=== PATIENT | male | born 1950 | race Caucasian/White ===

== ENCOUNTER → 2016-10-09 | Outpatient (CLI) | payer MEDICARE ==
[2016-10-10 12:44] LABS: TESTOSTERONE FREE (DIRECT) 9.6 pg/mL (6.6-18.1)
== END ==
LOC: OD 08:55
PROVIDERS: ATTEND Urology
DX: E29.1 Testicular hypofunction (principal)
CPT/HCPCS: 36415; 84402; 84403

== ENCOUNTER → 2016-11-01 | Outpatient (CLI) | payer MEDICARE ==
[2016-11-01 13:01] LABS: ABSOLUTE EOSINOPHILS # (AUTO) 0.4 10^3/uL (0.0-0.6); ABSOLUTE LYMPHOCYTES (AUTO) 3.1 10^3/uL (0.5-4.7); ABSOLUTE MONOCYTES (AUTO) 0.9 10^3/uL (0.1-1.4); ABSOLUTE NEUT (AUTO) 6.5 10^3/uL (1.7-8.2); BASOPHILS % (AUTO) 0.3 % (0-2); EOSINOPHILS % (AUTO) 3.3 % (0-6); HEMATOCRIT 46.6 % (37.9-51.0); HEMOGLOBIN 15.9 g/dL (13.5-17.0); HGB HCT DIFFERENCE 1.1; LYMPHOCYTES % (AUTO) 28.4 % (13-45); MEAN CORPUSCULAR HEMOGLOBIN 29.2 pg (27.0-33.4); MEAN CORPUSCULAR VOLUME 86 fl (80-97); MONOCYTES % (AUTO) 8.1 % (3-13); RED BLOOD COUNT 5.44 10^6/uL (4.35-5.55); RED CELL DISTRIBUTION WIDTH 14.6 % (11.5-14.0); SEGMENTED NEUTROPHILS % (AUTO) 59.9 % (42-78); WHITE BLOOD COUNT 10.9 10^3/uL (4.0-10.5)
[2016-11-01 13:15] LABS: APPEARANCE,URINE CLEAR; BILIRUBIN,URINE NEGATIVE (NEGATIVE); GLUCOSE, URINE NEGATIVE (NEGATIVE); KETONES,URINE NEGATIVE (NEGATIVE); LEUKOCYTE ESTERASE,URINE NEGATIVE (NEGATIVE); NITRITE,URINE NEGATIVE (NEGATIVE); PROTEIN,URINE NEGATIVE (NEGATIVE); UROBILINOGEN,URINE NEGATIVE mg/dL (<2.0)
[2016-11-01 13:22] LABS: ANION GAP 13 (5-19); BLOOD UREA NITROGEN 21 mg/dL (7-20); CALCIUM 10.2 mg/dL (8.4-10.2); CARBON DIOXIDE 24 mmol/L (22-30); CHLORIDE 104 mmol/L (98-107); CREATININE RESULT 1.04 mg/dL (0.52-1.25); GLUCOSE 107 mg/dL (75-110); POTASSIUM 4.5 mmol/L (3.6-5.0); SODIUM 141.2 mmol/L (137-145)
--- NOTE | 2016-11-01 20:06 | EKG REPORT ---
SEVERITY:- NORMAL ECG - SINUS RHYTHM : Confirmed by: Bernie Correa MD 01-Nov-2016 20:06:00
== END ==
LOC: OD 11:26
PROVIDERS: ATTEND Orthopaedic Surgery
DX: Z01.810 Encounter for preprocedural cardiovascular examination (principal); Z01.812 Encounter for preprocedural laboratory examination; Z01.818 Encounter for other preprocedural examination
CPT/HCPCS: 36415; 71020; 80048; 81001; 85025; 93005; 93010

== ENCOUNTER 2016-11-20 05:31 | Inpatient (IN) | payer MEDICARE, OTHER ==
[~2016-11-20 05:31] MED LIST: BUPIVACAINE INJ/PF LIPOSOME/PF 266 MG/20 ML SDV INFIL PRN; CEFAZOLIN INJ 1 GM VIAL IV PRN; IBUPROFEN 800 MG in NORMAL SALINE 250 ML IV PRN; LACTATED RINGERS 1000 ML IV PRN; LANSOPRAZOLE 15 MG TAB.RAP.DR PO PRN; LIDOCAINE 0.5% INJ-PF (5 MG/ML) 50 ML SDV SUBCUT PRN; ONDANSETRON HCL INJ/PF 4 MG/2 ML SDV IV PRN; OXYCODONE HCL SR 10 MG TABLET PO PRN; SCOPOLAMINE HYDROBROMIDE 1.5 MG PATCH.TD72 TD PRN; TRANEXAMIC ACID INJ/PF 1,000 MG/10 ML SDV IV PRN; VANCOMYCIN HCL 1,000 MG in DEXTROSE 5%-WATER 250 ML IV PRN
[2016-11-20] MEDS ORDERED: BUPIVACAINE INJ/PF LIPOSOME/PF 266 MG/20 ML SDV ONE (06:56)
[2016-11-20] MEDS ORDERED: THROMBIN (BOVINE) 5000 UNIT EPITAXIS KIT ONE (06:56)
[2016-11-20] MEDS ORDERED: THROMBIN (BOVINE) TOPICAL 20000 UNIT VIAL ONE (06:56)
[2016-11-20] MEDS ORDERED: FENTANYL CITRATE INJ/PF 100 MCG/2 ML AMPUL ONE (07:01)
[2016-11-20] MEDS ORDERED: MIDAZOLAM 2 MG/2 ML INJ ONE (07:01)
[2016-11-20] MEDS ORDERED: EPHEDRINE SULFATE INJ 50 MG/1 ML AMPULE ONE (07:02)
[2016-11-20] MEDS ORDERED: TRANEXAMIC ACID INJ/PF 1,000 MG/10 ML SDV IV ONE ×2 (07:02→11:00)
[2016-11-20] MEDS ORDERED: DEXMEDETOMIDINE INJ 80 MCG/20 ML VIAL IV ONE (07:02)
[2016-11-20] MEDS ORDERED: PROPOFOL INJ 200 MG/20 ML VIAL IV ONE (07:02)
[2016-11-20] MEDS ORDERED: IBUPROFEN INJ 800 MG/8 ML VIAL IV ONE (07:02)
[2016-11-20] MEDS ORDERED: KETAMINE HCL INJ 500 MG/10 ML VIAL ONE (08:13)
[2016-11-20] MEDS ORDERED: FENTANYL CITRATE INJ/PF 100 MCG/2 ML AMPUL IV PRN ×3 (08:28)
[2016-11-20] MEDS ORDERED: MORPHINE SULFATE 10 MG/ML INJ IV PRN ×4 (08:28→08:57)
[2016-11-20] MEDS ORDERED: PROMETHAZINE HCL INJ 25 MG/1 ML VIAL IV PRN ×2 (08:28)
[2016-11-20] MEDS ORDERED: DIPHENHYDRAMINE HCL 50 MG/ML VIAL IV PRN ×2 (08:28→08:57)
[2016-11-20] MEDS ORDERED: MEPERIDINE HCL/PF INJ 25 MG/1 ML DISP.SYRIN IV PRN (08:28)
[2016-11-20] MEDS ORDERED: ONDANSETRON HCL INJ/PF 4 MG/2 ML SDV IV PRN ×2 (08:28→08:57)
--- NOTE | 2016-11-20 08:55 | Operative Report ---
Operative Report DATE OF SURGERY: 11/20/16 PREOPERATIVE DIAGNOSIS: Right hip arthritis OPERATION: Right hip arthroplasty SURGEON: NAHUM LUA ANESTHESIA: Spinal TISSUE REMOVED OR ALTERED: Femoral head to pathology ESTIMATED BLOOD LOSS: 200 PROCEDURE: Implants used: Femur: Striker #7 Accolade to stem Acetabular shell: 52 mm PSL shell Liner: 36 mm flat cross-link polyethylene liner Head:. 36 mm chrome cobalt head -5 neck extension The patient is placed in a left lateral decubitus position on the operating table. The right lower extremity and hindquarter is prepped and draped in a sterile fashion. A curvilinear incision was made over the greater trochanter a posterior approach the hip was taken. The femoral head is dislocated and the femoral neck transected using an oscillating saw. Attention was next turned to the acetabulum. Soft tissues cleared off the acetabulum using electrocautery. The acetabulum was then prepared using a series of hemispherical reamers until a 52 millimeters reamer is seated. Subsequently a 52 millimeters Ramya PSL shell is impacted into position and secured with 2 screw. A standard flat 36 millimeters cross-link liner is impacted into the shell. Attention was next turned to the femur. Access is gained to the femoral canal using a box osteotome to the piriformis fossa. The femur is then prepared using a series of broaches until a number 7 broach is seated. A trial reduction was now performed using a 36 millimeters head with -5 neck. Preoperative leg length was recreated and is excellent anterior posterior stability. A decision was made to proceed with the above construct. All trial implants were removed. The wound is irrigated with pulsed lavage. A number 7 stem is impacted into the femoral canal. A trial reduction was again performed with a 36 mm head and a -5 neck. Findings as previously. The hip was dislocated one last time and the final chrome-cobalt head is impacted onto the trunnion. The hip was reduced. Wound is copiously irrigated with pulsed lavage. Sent closed in layers using interrupted Vicryl followed by amanuel. A sterile dressing is applied and the patient's returned to recovery room in satisfactory patient.
[2016-11-20] MEDS ORDERED: MAG HYDROX/AL HYDROX/SIMETH SUSP 30 ML UDCUP PO PRN (08:57)
[2016-11-20] MEDS ORDERED: ONDANSETRON 4 MG TAB.RAPDIS PO PRN (08:57)
[2016-11-20] MEDS ORDERED: OXYCODONE HCL IR 5 MG TABLET PO PRN (08:57)
[2016-11-20] MEDS ORDERED: ZOLPIDEM TARTRATE 5 MG TABLET PO PRN (08:57)
[2016-11-20] MEDS ORDERED: MORPHINE SULFATE 10 MG/ML INJ IM PRN (08:57)
[2016-11-20] MEDS ORDERED: ACETAMINOPHEN 325 MG TABLET PO PRN (08:57)
[2016-11-20] MEDS ORDERED: (PENDING PHARMACY ID) (Vit C/E/Zn/Coppr/Lutein/Zeaxan [Preservision Areds 2 Softgel] 1 EAC PO SCH (10:00)
[2016-11-20] MEDS ORDERED: (PENDING PHARMACY ID) (Acetaminophen [Pain Relief] 650 MG) PO SCH (10:00)
[2016-11-20] MEDS ORDERED: OXYCODONE HCL SR 10 MG TABLET PO SCH (10:00)
[2016-11-20] MEDS ORDERED: LIDOCAINE 2% INJ-PF (20 MG/ML) 10 ML AMPUL ONE (11:14)
[2016-11-20] MEDS ORDERED: DEXAMETHASONE SOD PHOSPHATE INJ 4 MG/1 ML VIAL ONE (11:14)
[2016-11-20] MEDS ORDERED: ONDANSETRON HCL INJ/PF 4 MG/2 ML SDV ONE (11:14)
[2016-11-20] MEDS ORDERED: GLYCOPYRROLATE INJ 0.4 MG/2 ML VIAL ONE (11:14)
[2016-11-20] MEDS ORDERED: PHENYLEPHRINE HCL INJ/PF 10 MG/1 ML SDV ONE (11:14)
[2016-11-20] MEDS ORDERED: METOCLOPRAMIDE HCL INJ/PF 10 MG/2 ML SDV ONE (11:14)
[2016-11-20] MEDS: RINGERS SOLUTION,LACTATED 1,000 ML IV PRN ×2 (12:00→18:41)
[2016-11-20] MEDS: SENNOSIDES/DOCUSATE 8.6-50 MG 1 EACH TABLET PO SCH ×2 (12:01→18:08)
--- NOTE | 2016-11-20 17:56 | PDOC PROGRESS REPORT ---
Subjective Progress Note for:: 11/20/16 Subjective:: The patient states to feel much better. He denies any pain. He is status post right hip arthroplasty. His breathing is well-controlled. He has been doing incentive spirometry. Physical Exam Vital Signs: Temp Pulse Resp BP Pulse Ox 98.1 F 94 16 122/65 98 11/20/16 15:30 11/20/16 15:30 11/20/16 15:30 11/20/16 15:30 11/20/16 15:30 Intake & Output 11/19/16 11/20/16 11/21/16 06:59 06:59 06:59 Intake Total 0 3900 Output Total 2150 Balance 0 1750 General appearance: PRESENT: mild distress Head exam: PRESENT: atraumatic Eye exam: PRESENT: conjunctiva pink Neck exam: ABSENT: carotid bruit Respiratory exam: PRESENT: clear to auscultation nabil Cardiovascular exam: PRESENT: RRR, +S1, +S2 Pulses: PRESENT: +1 pedal pulses bilateral Vascular exam: PRESENT: normal capillary refill GI/Abdominal exam: PRESENT: normal bowel sounds, soft Extremities exam: PRESENT: tenderness Musculoskeletal exam: PRESENT: other Neurological exam: PRESENT: alert, awake Psychiatric exam: PRESENT: normal mood Results Laboratory Results: 11/20/16 05:58 Blood Type O POSITIVE Antibody Screen NEGATIVE Impressions: Pelvis X-Ray 11/20/16 08:58 IMPRESSION: Right hip arthroplasty in good position. Assessment & Plan - Diagnosis (1) Hip arthritis Is this a current diagnosis for this admission?: YesPlan: Continue pain management and physical therapy (2) GERD (gastroesophageal reflux disease) Is this a current diagnosis for this admission?: YesPlan: Continue PPI (3) Hypertension Is this a current diagnosis for this admission?: YesPlan: Continue current medications
[2016-11-20] MEDS: IBUPROFEN 800 MG in NORMAL SALINE 250 ML IV SCH (18:08)
[2016-11-20] MEDS: PSYLLIUM SEED-SF 5.85 GM PACKET PO SCH ×2 (18:08)
[2016-11-20] MEDS: TAMSULOSIN HCL 0.4 MG CAP.SR.24H PO SCH (18:08)
[2016-11-20] MEDS: OXYCODONE HCL SR 10 MG TABLET PO SCH (18:09)
[2016-11-20] MEDS ORDERED: VANCOMYCIN HCL 1,000 MG in DEXTROSE 5%-WATER 250 ML IV ONE (20:57)
[2016-11-20] MEDS ORDERED: CALCIUM POLYCARBOPHIL PO SCH (22:00)
[2016-11-20] MEDS: PREGABALIN 75 MG CAPSULE PO SCH (23:08)
[2016-11-20] MEDS: ATORVASTATIN CALCIUM 20 MG TABLET PO SCH (23:08)
[2016-11-20] MEDS: FINASTERIDE 5 MG TABLET PO SCH (23:09)
[2016-11-20] MEDS: RIVAROXABAN 10 MG TABLET PO SCH (23:09)
[2016-11-21] MEDS: IBUPROFEN 800 MG in NORMAL SALINE 250 ML IV SCH ×3 (02:38→18:33)
[2016-11-21 04:52] LABS: HEMATOCRIT 34.6 % (37.9-51.0); HEMOGLOBIN 11.6 g/dL (13.5-17.0); HGB HCT DIFFERENCE 0.2; MEAN CORPUSCULAR HEMOGLOBIN 29.2 pg (27.0-33.4); MEAN CORPUSCULAR HGB CONC 33.5 g/dL (32.0-36.0); MEAN CORPUSCULAR VOLUME 87 fl (80-97); RED BLOOD COUNT 3.96 10^6/uL (4.35-5.55); RED CELL DISTRIBUTION WIDTH 14.5 % (11.5-14.0); WHITE BLOOD COUNT 13.8 10^3/uL (4.0-10.5)
[2016-11-21 05:11] LABS: ANION GAP 8 (5-19); BLOOD UREA NITROGEN 15 mg/dL (7-20); CALCIUM 8.6 mg/dL (8.4-10.2); CARBON DIOXIDE 23 mmol/L (22-30); CHLORIDE 107 mmol/L (98-107); CREATININE RESULT 1.03 mg/dL (0.52-1.25); GLUCOSE 130 mg/dL (75-110); POTASSIUM 4.4 mmol/L (3.6-5.0); SODIUM 138.1 mmol/L (137-145)
[2016-11-21] MEDS: LANSOPRAZOLE 30 MG TAB.RAP.DR PO SCH (06:08)
[2016-11-21] MEDS: OXYCODONE HCL SR 10 MG TABLET PO SCH ×2 (06:08→18:33)
--- NOTE | 2016-11-21 07:02 | PDOC PROGRESS REPORT ---
Subjective Progress Note for:: 11/21/16 Subjective:: Patient with minor complaints of pain Physical Exam Vital Signs: Temp Pulse Resp BP Pulse Ox 36.8 C 68 17 98/58 L 96 11/21/16 04:00 11/21/16 04:00 11/21/16 04:00 11/21/16 04:00 11/21/16 04:00 Intake & Output 11/20/16 11/21/16 11/22/16 06:59 06:59 06:59 Intake Total 0 5750 Output Total 6750 Balance 0 -1000 General appearance: PRESENT: no acute distress Head exam: PRESENT: normocephalic Eye exam: PRESENT: EOMI Respiratory exam: PRESENT: unlabored Cardiovascular exam: PRESENT: RRR Pulses: PRESENT: +1 pedal pulses bilateral Vascular exam: PRESENT: normal capillary refill GI/Abdominal exam: PRESENT: soft Rectal exam: PRESENT: deferred Extremities exam: PRESENT: other - Right lower extremity dressing clean dry and intact. Leg lengths are equal. Distal neurovascular examinations intact. Neurological exam: PRESENT: alert, awake, oriented to person, oriented to place , oriented to time, oriented to situation, CN II-XII grossly intact. ABSENT: motor sensory deficit Psychiatric exam: PRESENT: appropriate affect, normal mood. ABSENT: homicidal ideation, suicidal ideation Skin exam: PRESENT: dry, intact, warm. ABSENT: cyanosis, rash Results Laboratory Results: 11/21/16 04:32 11/21/16 04:32 11/21/16 11/21/16 04:32 04:32 WBC 13.8 H RBC 3.96 L Hgb 11.6 L Hct 34.6 L MCV 87 MCH 29.2 MCHC 33.5 RDW 14.5 H Plt Count 155 Sodium 138.1 Potassium 4.4 Chloride 107 Carbon Dioxide 23 Anion Gap 8 BUN 15 Creatinine 1.03 Est GFR ( Amer) > 60 Est GFR (Non-Af Amer) > 60 Glucose 130 H Calcium 8.6 Impressions: Pelvis X-Ray 11/20/16 08:58 IMPRESSION: Right hip arthroplasty in good position. Status: Imported from PACS Assessment & Plan - Diagnosis (1) Arthritis of right hip Is this a current diagnosis for this admission?: YesPlan: Patient's requesting a tetanus immunization. Otherwise, he'll focus on physical therapy on a weightbearing as tolerated ambulatory mode. - Time Time Spent with patient: 15-24 minutes Anticipated discharge: Home with Homehealth Within: within 48 hours
--- NOTE | 2016-11-21 07:23 | PDOC PROGRESS REPORT ---
Subjective Progress Note for:: 11/21/16 Subjective:: The patient states to feel relatively well. He does have some sore throat after the intubation. His right hip feels much better. Physical Exam Vital Signs: Temp Pulse Resp BP Pulse Ox 98.2 F 68 17 98/58 L 96 11/21/16 04:00 11/21/16 04:00 11/21/16 04:00 11/21/16 04:00 11/21/16 04:00 Intake & Output 11/20/16 11/21/16 11/22/16 06:59 06:59 06:59 Intake Total 0 5750 Output Total 6750 Balance 0 -1000 General appearance: PRESENT: mild distress Head exam: PRESENT: atraumatic Eye exam: PRESENT: conjunctiva pink Neck exam: ABSENT: carotid bruit Respiratory exam: PRESENT: rhonchi Cardiovascular exam: PRESENT: RRR, +S1, +S2 Pulses: PRESENT: normal carotid pulses, +1 pedal pulses bilateral GI/Abdominal exam: PRESENT: normal bowel sounds, soft Extremities exam: PRESENT: tenderness Neurological exam: PRESENT: alert, awake Results Laboratory Results: 11/21/16 04:32 11/21/16 04:32 11/21/16 11/21/16 04:32 04:32 WBC 13.8 H RBC 3.96 L Hgb 11.6 L Hct 34.6 L MCV 87 MCH 29.2 MCHC 33.5 RDW 14.5 H Plt Count 155 Sodium 138.1 Potassium 4.4 Chloride 107 Carbon Dioxide 23 Anion Gap 8 BUN 15 Creatinine 1.03 Est GFR ( Amer) > 60 Est GFR (Non-Af Amer) > 60 Glucose 130 H Calcium 8.6 Impressions: Pelvis X-Ray 11/20/16 08:58 IMPRESSION: Right hip arthroplasty in good position. Assessment & Plan - Diagnosis (1) Hip arthritis Is this a current diagnosis for this admission?: YesPlan: Continue pain management and physical therapy (2) GERD (gastroesophageal reflux disease) Is this a current diagnosis for this admission?: Yes (3) Hypertension Is this a current diagnosis for this admission?: YesPlan: Continue current medications (4) COPD (chronic obstructive pulmonary disease) Is this a current diagnosis for this admission?: YesPlan: Continue with incentive spirometry and neb treatments
[2016-11-21] MEDS ORDERED: TETANUS/DIPHTHERIA TOX-ADULT 0.5 ML SYR (>=7YO) IM ONE ×2 (09:30→15:30)
[2016-11-21] MEDS: SENNOSIDES/DOCUSATE 8.6-50 MG 1 EACH TABLET PO SCH ×2 (09:46→18:33)
[2016-11-21] MEDS: ACETAMINOPHEN 325 MG TABLET PO SCH (09:46)
[2016-11-21] MEDS: PREGABALIN 75 MG CAPSULE PO SCH ×2 (09:46→21:50)
[2016-11-21] MEDS: PRENATAL VITAMIN W-O CA NO5/FE FUMARATE/FA CAPSULE PO SCH (09:46)
[2016-11-21] MEDS: TAMSULOSIN HCL 0.4 MG CAP.SR.24H PO SCH (18:33)
[2016-11-21] MEDS: PSYLLIUM SEED-SF 5.85 GM PACKET PO SCH ×2 (18:34)
[2016-11-21] MEDS: RIVAROXABAN 10 MG TABLET PO SCH (21:50)
[2016-11-21] MEDS: FINASTERIDE 5 MG TABLET PO SCH (21:50)
[2016-11-21] MEDS: ATORVASTATIN CALCIUM 20 MG TABLET PO SCH (21:51)
[2016-11-22] MEDS: IBUPROFEN 800 MG in NORMAL SALINE 250 ML IV SCH ×2 (03:29→10:05)
[2016-11-22] MEDS: OXYCODONE HCL SR 10 MG TABLET PO SCH (05:02)
[2016-11-22] MEDS: LANSOPRAZOLE 30 MG TAB.RAP.DR PO SCH (05:03)
[2016-11-22 06:06] LABS: HEMATOCRIT 33.5 % (37.9-51.0); HEMOGLOBIN 11.3 g/dL (13.5-17.0); HGB HCT DIFFERENCE 0.4; MEAN CORPUSCULAR HGB CONC 33.7 g/dL (32.0-36.0); MEAN CORPUSCULAR VOLUME 86 fl (80-97); RED BLOOD COUNT 3.89 10^6/uL (4.35-5.55); RED CELL DISTRIBUTION WIDTH 14.6 % (11.5-14.0); WHITE BLOOD COUNT 12.2 10^3/uL (4.0-10.5)
--- NOTE | 2016-11-22 07:16 | PDOC PROGRESS REPORT ---
Physical Exam Vital Signs: Temp Pulse Resp BP Pulse Ox 36.7 C 78 16 108/67 97 11/21/16 23:12 11/21/16 23:12 11/21/16 23:12 11/21/16 23:12 11/21/16 23:12 Intake & Output 11/21/16 11/22/16 11/23/16 06:59 06:59 06:59 Intake Total 5750 1120 Output Total 6750 1300 Balance -1000 -180 Results Laboratory Results: 11/22/16 04:58 11/21/16 04:32 11/22/16 04:58 WBC 12.2 H RBC 3.89 L Hgb 11.3 L Hct 33.5 L MCV 86 MCH 29.0 MCHC 33.7 RDW 14.6 H Plt Count 161 Impressions: Pelvis X-Ray 11/20/16 08:58 IMPRESSION: Right hip arthroplasty in good position. Assessment & Plan - Diagnosis (1) Arthritis of right hip Is this a current diagnosis for this admission?: YesPlan: 66-year-old white male, postop day 2 from right hip arthroplasty. Patient complaining of pain. Mid excellent progress with physical therapy yesterday. Ambulating 200 feet. Is requesting additional day in the hospital for better pain control. - Time Time Spent with patient: 15-24 minutes Anticipated discharge: Home with Homehealth Within: within 24 hours
[2016-11-22] MEDS: ACETAMINOPHEN 325 MG TABLET PO SCH (10:05)
[2016-11-22] MEDS: PRENATAL VITAMIN W-O CA NO5/FE FUMARATE/FA CAPSULE PO SCH (10:05)
[2016-11-22] MEDS: SENNOSIDES/DOCUSATE 8.6-50 MG 1 EACH TABLET PO SCH ×2 (10:06→17:57)
[2016-11-22] MEDS: PREGABALIN 75 MG CAPSULE PO SCH ×2 (10:06→23:22)
--- NOTE | 2016-11-22 11:06 | PDOC PROGRESS REPORT ---
Subjective Progress Note for:: 11/22/16 Subjective:: The patient states to feel better. He is still very unsteady on his feet. He thinks it might have to do with his disequilibrium after the brain tumor removal. He was able to ambulate with assistance and walker down the hallways. Physical Exam Vital Signs: Temp Pulse Resp BP Pulse Ox 98.0 F 77 18 115/63 98 11/22/16 08:38 11/22/16 08:38 11/22/16 08:38 11/22/16 08:38 11/22/16 08:38 Intake & Output 11/21/16 11/22/16 11/23/16 06:59 06:59 06:59 Intake Total 5750 1120 0 Output Total 6750 1300 Balance -1000 -180 0 General appearance: PRESENT: no acute distress Head exam: PRESENT: atraumatic Eye exam: PRESENT: conjunctiva pink Neck exam: ABSENT: carotid bruit Respiratory exam: PRESENT: rhonchi Cardiovascular exam: PRESENT: RRR, +S1, +S2 Pulses: PRESENT: normal carotid pulses Vascular exam: PRESENT: normal capillary refill GI/Abdominal exam: PRESENT: normal bowel sounds, soft Extremities exam: PRESENT: tenderness Musculoskeletal exam: PRESENT: ambulatory Neurological exam: PRESENT: alert, awake Results Laboratory Results: 11/22/16 04:58 11/21/16 04:32 11/22/16 04:58 WBC 12.2 H RBC 3.89 L Hgb 11.3 L Hct 33.5 L MCV 86 MCH 29.0 MCHC 33.7 RDW 14.6 H Plt Count 161 Impressions: Pelvis X-Ray 11/20/16 08:58 IMPRESSION: Right hip arthroplasty in good position. Assessment & Plan - Diagnosis (1) Hip arthritis Is this a current diagnosis for this admission?: YesPlan: Continue pain management and physical therapy (2) GERD (gastroesophageal reflux disease) Is this a current diagnosis for this admission?: Yes (3) Hypertension Is this a current diagnosis for this admission?: YesPlan: Continue current medications (4) COPD (chronic obstructive pulmonary disease) Is this a current diagnosis for this admission?: YesPlan: Continue with incentive spirometry and neb treatments
[2016-11-22] MEDS: TAMSULOSIN HCL 0.4 MG CAP.SR.24H PO SCH (17:57)
[2016-11-22] MEDS: PSYLLIUM SEED-SF 5.85 GM PACKET PO SCH ×2 (17:57)
[2016-11-22] MEDS: ATORVASTATIN CALCIUM 20 MG TABLET PO SCH (23:21)
[2016-11-22] MEDS: FINASTERIDE 5 MG TABLET PO SCH (23:22)
[2016-11-22] MEDS: RIVAROXABAN 10 MG TABLET PO SCH (23:24)
[2016-11-23] MEDS: LANSOPRAZOLE 30 MG TAB.RAP.DR PO SCH (05:17)
[2016-11-23 05:30] LABS: HEMATOCRIT 35.5 % (37.9-51.0); HEMOGLOBIN 11.9 g/dL (13.5-17.0); HGB HCT DIFFERENCE 0.2; MEAN CORPUSCULAR HEMOGLOBIN 28.9 pg (27.0-33.4); MEAN CORPUSCULAR HGB CONC 33.5 g/dL (32.0-36.0); MEAN CORPUSCULAR VOLUME 86 fl (80-97); RED BLOOD COUNT 4.11 10^6/uL (4.35-5.55); RED CELL DISTRIBUTION WIDTH 14.9 % (11.5-14.0); WHITE BLOOD COUNT 13.9 10^3/uL (4.0-10.5)
--- NOTE | 2016-11-23 06:49 | PDOC DISCHARGE SUMMARY ---
General - Admit/Disc Date/PCP Admission Date/Primary Care Provider: 11/20/16 05:31 CHRISTOS HIGGINBOTHAM, Discharge Date: 11/23/16 - Discharge Diagnosis (1) Arthritis of right hip Is this a current diagnosis for this admission?: Yes - Additional Information Resuscitation Status: Full Code Discharge Diet: As Tolerated, Regular Discharge Activity: Activity As Tolerated, Balance Activity w/Rest, No Driving, No tub bath Home Medications: Omeprazole 20 mg PO BID 03/07/14 Pravastatin Sodium [Pravachol] 80 mg PO QHS 03/07/14 Tamsulosin HCl [Flomax 0.4 mg Cap.sr] 0.4 mg PO QPM 03/07/14 Aspirin 81 mg PO DAILY 02/24/15 Finasteride [Proscar 5 mg Tablet] 5 mg PO QHS 02/24/15 Multivitamin [Multivitamins] 1 each PO DAILY 02/24/15 [place]-3 Fatty Acids/Fish Oil [Fish Oil 1,000 mg Capsule] 1,000 mg PO DAILY 02/24 Calcium Polycarbophil [Fiber Tabs 625 mg Tablet] 3 tab PO QHS 08/24/15 Calcium Polycarbophil [Fiber-Tabs] 2 tab PO QAM 08/24/15 Vit C/E/Zn/Coppr/Lutein/Zeaxan [Preservision Areds 2 Softgel] 1 each PO BID 03/31 Acetaminophen [Pain Relief] 650 mg PO DAILY 11/08/16 Calcium Carbonate [Tums Ultra] 2 - 3 tab.chew PO QPM PRN 11/08/16 Cholecalciferol (Vitamin D3) [Vitamin D3] 1,000 unit PO DAILY 11/08/16 Oxycodone HCl [Oxy-Ir 5 mg Tablet] 5 mg PO Q6HP PRN #0 tablet 11/23/16 Rivaroxaban [Xarelto 10 mg Tablet] 10 mg PO QHS #0 tablet 11/23/16 History of Present Illness History of Present Illness: JADA SPARKS is a 66 year old male progressive right hip pain and functional disability secondary to osteoarthritis Hospital Course Hospital Course: A she is admitted through the operating room where he undergoes uncomplicated right hip replacement. His returned to floor in satisfactory condition. He makes excellent progress with physical therapy. Previous brain tumor leading to some instability and he kept an extra day for ongoing physical therapy. Physical Exam Vital Signs: Temp Pulse Resp BP Pulse Ox 37.1 C 98 17 127/65 H 94 11/23/16 03:38 11/23/16 03:38 11/23/16 03:38 11/23/16 03:38 11/23/16 03:38 Intake & Output 11/21/16 11/22/16 11/23/16 06:59 06:59 06:59 Intake Total 5750 1120 800 Output Total 6750 1300 1500 Balance -1000 -180 -700 General appearance: PRESENT: no acute distress Head exam: PRESENT: normocephalic Respiratory exam: PRESENT: unlabored Cardiovascular exam: PRESENT: RRR Pulses: PRESENT: +1 pedal pulses bilateral GI/Abdominal exam: PRESENT: soft Rectal exam: PRESENT: deferred Musculoskeletal exam: PRESENT: other - Right lower extremity anastasiya dressing is clean dry and intact. Leg lengths are equal. Distal neurovascular examinations intact. Skin exam: PRESENT: dry, intact, warm. ABSENT: cyanosis, rash Results Laboratory Results: 11/23/16 05:15 11/21/16 04:32 11/23/16 05:15 WBC 13.9 H RBC 4.11 L Hgb 11.9 L Hct 35.5 L MCV 86 MCH 28.9 MCHC 33.5 RDW 14.9 H Plt Count 171 Impressions: Pelvis X-Ray 11/20/16 08:58 IMPRESSION: Right hip arthroplasty in good position. Status: Imported from PACS Plan Discharge Plan: The patient will be discharged home with home health nursing, home health physical therapy, we'll Walker, bedside commode. Visiting nurse service can change the anastasiya dressing was stopped a #7 and replace it with an OpSite. Patient return to see Dr. Ramos in the [facility] for surgeon 2 weeks for staple removal.
[2016-11-23 08:28] VITALS: BP 134/82
[2016-11-23] MEDS: PRENATAL VITAMIN W-O CA NO5/FE FUMARATE/FA CAPSULE PO SCH (09:16)
[2016-11-23] MEDS: ACETAMINOPHEN 325 MG TABLET PO SCH (09:17)
[2016-11-23] MEDS: PREGABALIN 75 MG CAPSULE PO SCH (09:17)
[2016-11-23] MEDS: SENNOSIDES/DOCUSATE 8.6-50 MG 1 EACH TABLET PO SCH (09:17)
== END 2016-11-23 11:45 | disposition home health service (06) | DRG 470 ==
LOC: INOR 05:31 → 4S 10:36
PROVIDERS: ADMIT Orthopaedic Surgery; ATTEND Orthopaedic Surgery
PROC: 0SR902A Replacement of Right Hip Joint with Metal on Polyethylene Synthetic Substitute, Uncemented, Open Approach (ICD-10-PCS; principal; 2016-11-20 07:30)
PROC: 3E0234Z Introduction of Serum, Toxoid and Vaccine into Muscle, Percutaneous Approach (ICD-10-PCS; 2016-11-21)
DX: M16.11 Unilateral primary osteoarthritis, right hip (principal); H40.9 Unspecified glaucoma; H91.90 Unspecified hearing loss, unspecified ear; K21.9 Gastro-esophageal reflux disease without esophagitis; I10 Essential (primary) hypertension; J44.9 Chronic obstructive pulmonary disease, unspecified; N40.0 Benign prostatic hyperplasia without lower urinary tract symptoms; Z23 Encounter for immunization; Z87.891 Personal history of nicotine dependence
CPT/HCPCS: 01214; 36415; 72170; 80048; 85027; 86850; 86900; 86901; 88304; 88311; 90714; 94799; C1713; C1780; C9290; G8978-GP; G8979-GP; G8987-GO; G8988-GO; J0690; J1100; J1741; J2250; J2370; J2405; J2704; J2765; J3010; J3370; J3490; J7050; J7060; J7120; S0119

== ENCOUNTER 2016-11-24 23:50 | Emergency (ER) | payer MEDICARE, OTHER ==
[2016-11-25] MEDS ORDERED: ACETAMINOPHEN 325 MG TABLET ONE (01:02)
[2016-11-25 02:10] LABS: ABSOLUTE EOSINOPHILS # (AUTO) 0.3 10^3/uL (0.0-0.6); ABSOLUTE MONOCYTES (AUTO) 1.5 10^3/uL (0.1-1.4); ABSOLUTE NEUT (AUTO) 10.9 10^3/uL (1.7-8.2); ALANINE AMINOTRANSFERASE 52 U/L (21-72); ALBUMIN 3.4 g/dL (3.5-5.0); ALKALINE PHOSPHATASE 47 U/L (38-126); ANION GAP 13 (5-19); ASPARTATE AMINO TRANSFERASE 47 U/L (17-59); BASOPHILS % (AUTO) 0.2 % (0-2); BILIRUBIN,DIRECT 0.3 mg/dL (0.0-0.4); BILIRUBIN,TOTAL 0.7 mg/dL (0.2-1.3); BLOOD UREA NITROGEN 19 mg/dL (7-20); CARBON DIOXIDE 23 mmol/L (22-30); CHLORIDE 102 mmol/L (98-107); CREATINE KINASE MB 2.12 ng/mL (<4.55); CREATININE RESULT 1.07 mg/dL (0.52-1.25); EOSINOPHILS % (AUTO) 2.3 % (0-6); GLUCOSE 132 mg/dL (75-110); HEMATOCRIT 37.9 % (37.9-51.0); HEMOGLOBIN 12.4 g/dL (13.5-17.0); HGB HCT DIFFERENCE -0.7; LYMPHOCYTES % (AUTO) 13.7 % (13-45); MEAN CORPUSCULAR HEMOGLOBIN 28.3 pg (27.0-33.4); MEAN CORPUSCULAR HGB CONC 32.7 g/dL (32.0-36.0); MEAN CORPUSCULAR VOLUME 86 fl (80-97); MONOCYTES % (AUTO) 10.4 % (3-13); POTASSIUM 4.3 mmol/L (3.6-5.0); RED BLOOD COUNT 4.39 10^6/uL (4.35-5.55); RED CELL DISTRIBUTION WIDTH 14.1 % (11.5-14.0); SEGMENTED NEUTROPHILS % (AUTO) 73.4 % (42-78); SODIUM 137.8 mmol/L (137-145); TOTAL PROTEIN 6.2 g/dL (6.3-8.2); WHITE BLOOD COUNT 14.8 10^3/uL (4.0-10.5)
[2016-11-25 02:11] LABS: TROPONIN I < 0.012 ng/mL
[2016-11-25 02:20] LABS: CREATINE KINASE 746 U/L (55-170)
[2016-11-25] MEDS ORDERED: ACETAMINOPHEN 325 MG TABLET PO ONE (03:30)
[2016-11-25] MEDS ORDERED: LEVOFLOXACIN 750 MG TABLET PO ONE (05:58)
--- NOTE | 2016-11-25 06:22 | ER Document Report ---
ED General - General Chief Complaint: Chest Wall Pain Stated Complaint: CHEST PAIN Time Seen by Provider: 11/25/16 00:17 Mode of Arrival: Medic Information source: Patient, Relative TRAVEL OUTSIDE OF THE [place] IN LAST 30 DAYS: No - HPI Notes: 66-year-old white male status post right total hip replacement for arthritis on 11/20/16 presents with report he has had chronic swelling and pain to the right hip region which is gradually improving, but 4 hours prior to arrival he developed chest pain that was pleuritic followed by chills and rigors and a slightly worsening cough. He denies any abdominal pain or radiation of pain about the arms. No nausea or vomiting. He does admit to feeling somewhat short of breath. No prior history of cardiac disease. - Related Data Allergies/Adverse Reactions: lactose [Lactose] Allergy (Mild, Verified 11/08/16 11:56) Nausea, Stomach Cramps, Diarrhea Past Medical History - General Information source: Patient - Social History Smoking Status: Never Smoker Frequency of alcohol use: None Drug Abuse: None Lives with: Family Family History: Malignancy. denies: CAD - Past Medical History Cardiac Medical History: Reports: Hx Hypercholesterolemia, Hx Hypertension - well controlled Denies: Hx Atrial Fibrillation, Hx Congestive Heart Failure, Hx Coronary Artery Disease, Hx Heart Attack, Hx Peripheral Vascular Disease, Hx Pulmonary Embolism, Hx Heart Murmur Pulmonary Medical History: Reports: Hx Bronchitis, Hx COPD Denies: Hx Asthma, Hx Pneumonia, Hx Respiratory Failure, Hx Sleep Apnea, Hx Tuberculosis Neurological Medical History: Denies: Hx Cerebrovascular Accident, Hx Seizures Renal/ Medical History: Reports: Hx Benign Prostatic Hyperplasia - nocturia x 2-3/night. Denies: Hx End Stage Renal Disease, Hx Kidney Stones, Hx Peritoneal Dialysis Malignancy Medical History: Denies Hx Lung Cancer GI Medical History: Reports: Hx Gastroesophageal Reflux Disease, Hx Hiatal Hernia, Hx Ulcer. Denies: Hx Crohn's Disease, Hx Hepatitis, Hx Irritable Bowel , Hx Liver Failure Musculoskeltal Medical History: Reports Hx Arthritis - hip, Denies Hx Fibromyalgia, Denies Hx Multiple Sclerosis, Denies Hx Muscular Dystrophy Psychiatric Medical History: Denies: Hx Dementia, Hx Depression Traumatic Medical History: Reports: Hx Fractures - multiple "toes and fingers", denies surgical intervention Infectious Medical History: Denies: Hx Hepatitis Past Surgical History: Reports: Hx Herniorrhaphy - 2016, Hx Neurologic Surgery, Hx Orthopedic Surgery - Right and left hip, Hx Tonsillectomy - as child. Denies : Hx Appendectomy, Hx Bowel Surgery, Hx Cholecystectomy, Hx Colostomy, Hx Coronary Artery Bypass Graft, Hx Gastric Bypass Surgery, Hx Open Heart Surgery, Hx Pacemaker - Immunizations Immunizations up to date: Yes Hx Diphtheria, Pertussis, Tetanus Vaccination: Yes Hx Pneumococcal Vaccination: 07/16/11 Review of Systems - Review of Systems Notes: REVIEW OF SYSTEMS: CONSTITUTIONAL : Reports chills. EENT: Denies eye, ear, throat, or mouth pain or symptoms. Denies nasal or sinus congestion or discharge. Denies throat, tongue, or mouth swelling or difficulty swallowing. CARDIOVASCULAR: Denies palpitations or racing or irregular heart beat. RESPIRATORY: Denies wheezing. GASTROINTESTINAL: Denies abdominal pain or distention. Denies nausea, vomiting , or diarrhea. Denies blood in vomitus, stools, or per rectum. Denies black, tarry stools. Denies constipation. GENITOURINARY: Denies difficulty urinating, painful urination, burning, frequency, blood in urine, or discharge. MUSCULOSKELETAL: Denies back or neck pain or stiffness. Denies joint pain or swelling. SKIN: Denies rash, lesions or sores. HEMATOLOGIC : Denies easy bruising or bleeding. LYMPHATIC: Denies swollen, enlarged glands. NEUROLOGICAL: Denies confusion or altered mental status. Denies passing out or loss of consciousness. Denies dizziness or lightheadedness. Denies headache. Denies weakness or paralysis or loss of use of either side. Denies problems with gait or speech. Denies sensory loss, numbness, or tingling. Denies seizures. PSYCHIATRIC: Denies anxiety or stress. Denies depression, suicidal ideation, or homicidal ideation. ALL OTHER SYSTEMS REVIEWED AND NEGATIVE. Dictation was performed using [employer] voice recognition software Physical Exam - Vital signs Vitals: Pulse Ox 94 11/24/16 23:54 - Notes Notes: PHYSICAL EXAMINATION: GENERAL: Well-appearing, well-nourished and in no acute distress. HEAD: Atraumatic, normocephalic. EYES: Pupils equal round and reactive to light, extraocular movements intact, sclera anicteric, conjunctiva are normal. ENT: Nares patent, oropharynx clear without exudates. Moist mucous membranes. NECK: Normal range of motion, supple without lymphadenopathy LUNGS: Breath sounds clear to auscultation bilaterally and equal. No wheezes. Scant rhonchi noted anteriorly. HEART: Regular rate and rhythm without murmurs ABDOMEN: Soft, nontender, nondistended abdomen. No guarding, no rebound. No masses appreciated. Musculoskeletal: Normal range of motion. No cyanosis. Tender to the anterior chest on palpation through the costal margin and mid sternal region, worse with coughing. Negative Homans. No obvious palpable cord. Patient does have 2+ edema right lower extremity as compared to trace edema left lower extremity. NEUROLOGICAL: Cranial nerves grossly intact. Normal speech, normal gait. Normal sensory, motor exams PSYCH: Normal mood, normal affect. SKIN: Warm, Dry, normal turgor. Right hip post surgical site shows resolving contusion and no gross evidence for deep S's or cellulitis. Course - Re-evaluation Re-evalutation: 11/25/16 07:19 11/25/16 07:20 The patient was given Tylenol for pain with improvement. Off of oxygen, the patient's O2 sats were in the mid 90s. No hypoxia or suggestion for PE or significant anemia or electrolyte imbalance or evidence for sepsis. Blood cultures taken prior to the patient receiving Levaquin. No history of exposure to tuberculosis. No evidence for obvious cellulitis or abscess. - Vital Signs Vital signs: Temp Pulse Resp BP Pulse Ox 98.3 F 90 19 115/60 94 11/25/16 06:01 11/25/16 00:15 11/25/16 06:01 11/25/16 06:01 11/25/16 06:01 - Laboratory Result Diagrams: 11/25/16 00:17 11/25/16 00:17 Laboratory results interpreted by me: 11/25/16 11/25/16 00:17 00:17 WBC 14.8 H Hgb 12.4 L RDW 14.1 H Absolute Neutrophils 10.9 H Absolute Monocytes 1.5 H Glucose 132 H Creatine Kinase 746 H Total Protein 6.2 L Albumin 3.4 L Discharge - Discharge Clinical Impression: Chest pain Qualifiers: Chest pain type: pleurodynia Qualified Code(s): R07.81 - Pleurodynia Pneumonia Qualifiers: Pneumonia type: due to unspecified organism Laterality: bilateral Lung location : upper lobe of lung Qualified Code(s): J18.9 - Pneumonia, unspecified organism Condition: Stable Disposition: HOME, SELF-CARE Additional Instructions: Pneumonia Your examination indicates that you have pneumonia. This is an infection of the lung tissue, usually caused by bacteria or a virus. Symptoms include cough, fever, shaking chills, chest pain, shortness of breath, and coughing up bloody sputum. Treatment for bacterial pneumonia includes rest, antibiotics for 10 to 14 days, increasing your clear liquid intake, a cool mist humidifier at your bedside, and fever medication. Often, a repeat chest X-ray is performed in a few weeks--even if you feel better--to ascertain whether the infection has completely resolved and no underlying lung problem is present. You should call the physician if you develop persistent vomiting, high fever that does not respond to fever medication, increasing shortness of breath , confusion, or lethargy. Also, failure to improve within two to three days is an indication for re-examination. Take Tylenol as directed for any fever. Return to the ED in case of severe pain or difficulty breathing. Prescriptions: Levofloxacin [Levaquin 500 mg Tablet] 500 mg PO DAILY #8 tablet Referrals: CHRISTOS HIGGINBOTHAM MD [Primary Care Provider] - Follow up as needed
[2016-11-25 06:36] VITALS: BP 115/60
--- NOTE | 2016-11-25 13:14 | EKG REPORT ---
SEVERITY:- NORMAL ECG - SINUS RHYTHM : Confirmed by: Maribell Faulkner 25-Nov-2016 13:13:15
== END 2016-11-25 07:40 | disposition home or self-care (01) ==
LOC: ER 23:50
DX: J18.9 Pneumonia, unspecified organism (principal); R07.81 Pleurodynia; R68.83 Chills (without fever); J44.9 Chronic obstructive pulmonary disease, unspecified; R05 Cough; R06.02 Shortness of breath; R60.0 Localized edema; I10 Essential (primary) hypertension; Z91.018 Allergy to other foods; Z96.641 Presence of right artificial hip joint
CPT/HCPCS: 93005; 99285; 36415; 87040; 82553; 82550; 85025; 80053; 84484; 83605; 71010; 71275; 93010; A9270 ×2

== ENCOUNTER 2017-05-11 17:44 | Emergency (ER) | payer MEDICARE, OTHER ==
[2017-05-11] MEDS ORDERED: NORMAL SALINE 1000 ML 1,000 ML IV ONE (18:23)
[2017-05-11] MEDS ORDERED: KETOROLAC TROMETHAMINE INJ/PF 30 MG/1 ML SDV IV ONE (18:24)
--- NOTE | 2017-05-11 18:29 | ER Document Report ---
ED Medical Screen (RME) - General Chief Complaint: Abdominal Pain Stated Complaint: RIGHT SIDE PAIN Time Seen by Provider: 05/11/17 18:23 Mode of Arrival: Wheelchair Information source: Patient TRAVEL OUTSIDE OF THE [place] IN LAST 30 DAYS: No - HPI Patient complains to provider of: R sided abd pain Onset: Just prior to arrival - pt states he sneezed earlier this afternoon and then developed R-sided abd pain. Denies N/V/SOB. States he is having some dyspnea when he takes a deep breath. - Related Data Allergies/Adverse Reactions: lactose [Lactose] Allergy (Mild, Verified 11/08/16 11:56) Nausea, Stomach Cramps, Diarrhea Past Medical History - Past Medical History Cardiac Medical History: Reports: Hx Hypercholesterolemia, Hx Hypertension - well controlled Denies: Hx Atrial Fibrillation, Hx Congestive Heart Failure, Hx Coronary Artery Disease, Hx Heart Attack, Hx Peripheral Vascular Disease, Hx Pulmonary Embolism, Hx Heart Murmur Pulmonary Medical History: Reports: Hx Bronchitis, Hx COPD Denies: Hx Asthma, Hx Pneumonia, Hx Respiratory Failure, Hx Sleep Apnea, Hx Tuberculosis Neurological Medical History: Denies: Hx Cerebrovascular Accident, Hx Seizures Renal/ Medical History: Reports: Hx Benign Prostatic Hyperplasia - nocturia x 2-3/night. Denies: Hx End Stage Renal Disease, Hx Kidney Stones, Hx Peritoneal Dialysis Malignancy Medical History: Denies Hx Lung Cancer GI Medical History: Reports: Hx Gastroesophageal Reflux Disease, Hx Hiatal Hernia, Hx Ulcer. Denies: Hx Crohn's Disease, Hx Hepatitis, Hx Irritable Bowel , Hx Liver Failure, Hx Pancreatitis Musculoskeltal Medical History: Reports Hx Arthritis - hip, Denies Hx Fibromyalgia, Denies Hx Multiple Sclerosis, Denies Hx Muscular Dystrophy Psychiatric Medical History: Denies: Hx Dementia, Hx Depression Traumatic Medical History: Reports: Hx Fractures - multiple "toes and fingers", denies surgical intervention Infectious Medical History: Denies: Hx Hepatitis Past Surgical History: Reports: Hx Herniorrhaphy - 2016, Hx Neurologic Surgery, Hx Orthopedic Surgery - Right and left hip, Hx Tonsillectomy - as child. Denies : Hx Appendectomy, Hx Bowel Surgery, Hx Cholecystectomy, Hx Colostomy, Hx Coronary Artery Bypass Graft, Hx Gastric Bypass Surgery, Hx Open Heart Surgery, Hx Pacemaker - Immunizations Immunizations up to date: Yes Hx Diphtheria, Pertussis, Tetanus Vaccination: Yes Physical Exam - Vital signs Vitals: Temp Pulse Resp BP Pulse Ox 97.6 F 80 24 H 134/80 H 97 05/11/17 17:51 05/11/17 17:51 05/11/17 17:51 05/11/17 17:51 05/11/17 17:51 Course - Vital Signs Vital signs: Temp Pulse Resp BP Pulse Ox 97.6 F 80 24 H 134/80 H 97 05/11/17 17:51 05/11/17 17:51 05/11/17 17:51 05/11/17 17:51 05/11/17 17:51
--- NOTE | 2017-05-11 18:56 | RADIOLOGY REPORT (SQ) ---
EXAM DESCRIPTION: CHEST PA/LAT COMPLETED DATE/TIME: 05/11/2017 6:48 pm REASON FOR STUDY: sob COMPARISON: 02/18/2015 EXAM PARAMETERS: NUMBER OF VIEWS: two views TECHNIQUE: Digital Frontal and Lateral radiographic views of the chest acquired. RADIATION DOSE: NA LIMITATIONS: none FINDINGS: LUNGS AND PLEURA: Stable chronic lung change without new opacities, masses or pneumothorax . No pleural effusion. MEDIASTINUM AND HILAR STRUCTURES: No masses or contour abnormalities. HEART AND VASCULAR STRUCTURES: Heart stable size. No evidence for failure. BONES: No acute findings. HARDWARE: None in the chest. OTHER: No other significant finding. IMPRESSION: NO ACUTE CARDIOPULMONARY PROCESS. NO SIGNIFICANT CHANGE FROM PRIOR STUDY. TECHNICAL DOCUMENTATION: JOB ID: [id number] [employer]- All Rights Reserved
[2017-05-11 19:20] LABS: ABSOLUTE EOSINOPHILS # (AUTO) 0.5 10^3/uL (0.0-0.6); ABSOLUTE LYMPHOCYTES (AUTO) 3.6 10^3/uL (0.5-4.7); ABSOLUTE MONOCYTES (AUTO) 1.1 10^3/uL (0.1-1.4); ABSOLUTE NEUT (AUTO) 5.4 10^3/uL (1.7-8.2); BASOPHILS % (AUTO) 0.3 % (0-2); EOSINOPHILS % (AUTO) 4.3 % (0-6); HEMATOCRIT 47.2 % (37.9-51.0); HEMOGLOBIN 15.8 g/dL (13.5-17.0); HGB HCT DIFFERENCE 0.2; MEAN CORPUSCULAR HEMOGLOBIN 28.3 pg (27.0-33.4); MEAN CORPUSCULAR HGB CONC 33.6 g/dL (32.0-36.0); MEAN CORPUSCULAR VOLUME 84 fl (80-97); MONOCYTES % (AUTO) 10.2 % (3-13); RED CELL DISTRIBUTION WIDTH 15.1 % (11.5-14.0); SEGMENTED NEUTROPHILS % (AUTO) 51.2 % (42-78); WHITE BLOOD COUNT 10.5 10^3/uL (4.0-10.5)
[2017-05-11 19:39] LABS: ALANINE AMINOTRANSFERASE 59 U/L (21-72); ALBUMIN 4.5 g/dL (3.5-5.0); ALKALINE PHOSPHATASE 64 U/L (38-126); ANION GAP 13 (5-19); ASPARTATE AMINO TRANSFERASE 32 U/L (17-59); BILIRUBIN,DIRECT 0.3 mg/dL (0.0-0.4); BILIRUBIN,TOTAL 0.6 mg/dL (0.2-1.3); BLOOD UREA NITROGEN 22 mg/dL (7-20); CALCIUM 9.2 mg/dL (8.4-10.2); CARBON DIOXIDE 24 mmol/L (22-30); CHLORIDE 104 mmol/L (98-107); CREATININE RESULT 1.12 mg/dL (0.52-1.25); GLUCOSE 90 mg/dL (75-110); LIPASE 156.2 U/L (23-300); POTASSIUM 4.7 mmol/L (3.6-5.0); SODIUM 140.5 mmol/L (137-145); TOTAL PROTEIN 7.5 g/dL (6.3-8.2)
--- NOTE | 2017-05-11 21:03 | RADIOLOGY REPORT (SQ) ---
EXAM DESCRIPTION: CT ABD/PELVIS WITH IV ONLY COMPLETED DATE/TIME: 05/11/2017 8:51 pm REASON FOR STUDY: R abdomen pain COMPARISON: 04/19/2016 TECHNIQUE: CT scan of the abdomen and pelvis performed using helical scanning technique with dynamic intravenous contrast injection. No oral contrast. Images reviewed with lung, soft tissue, and bone windows. Reconstructed coronal and sagittal MPR images reviewed. Delayed images for evaluation of the urinary system also acquired. All images stored on PACS. All CT scanners at this facility use dose modulation, iterative reconstruction, and/or weight based d osing when appropriate to reduce radiation dose to as low as reasonably achievable (ALARA). [facility]: Dose Right [facility]: CareDose [facility]: Dose Right [facility]: Teradose 4D [facility]: LiveHive CONTRAST TYPE AND DOSE: contrast/concentration: Isovue 370.00 mg/ml; Total Contrast Delivered: 100.0 ml; Total Saline Delivered: 45.0 ml RENAL FUNCTION: Creatinine measures 1.20 RADIATION DOSE: Up-to-date CT equipment and radiation dose reduction techniques were employed. CTDIv ol: 16.4 - 19.9 mGy. DLP: 2026 mGy-cm.. LIMITATIONS: None. FINDINGS: LOWER CHEST: Stable chronic lung change without new airspace disease. LIVER: Normal size. No masses. No dilated ducts. SPLEEN: Normal size. No focal lesions. PANCREAS: No masses. No significant calcifications. No adjacent inflammation or peripancreatic fluid collections. Pancreatic duct not dilated. GALLBLADDER: No identified stones by CT criteria. No inflammatory changes to suggest cholecystitis. ADRENAL GLANDS: No significant masses or asymmetry. RIGHT KIDNEY AND URETER: No solid masses. No significant calcifications. No hydronephrosis or hyd roureter. LEFT KIDNEY AND URETER: No solid masses. No significant calcifications. No hydronephrosis or hydr oureter. AORTA AND VESSELS: Stable in size and contour with calcified and noncalcified plaque throughout. No d issection. Renal arteries, SMA, celiac without stenosis. RETROPERITONEUM: No retroperitoneal adenopathy, hemorrhage or masses. BOWEL AND PERITONEAL CAVITY: No masses or inflammatory changes. No free fluid or peritoneal masses. APPENDIX: Normal. PELVIS: No mass. No free fluid. Normal bladder. ABDOMINAL WALL: No masses. No hernias. BONES: No significant or acute findings. OTHER: No other significant finding. IMPRESSION: NO SIGNIFICANT OR ACUTE FINDING IN THE ABDOMEN OR PELVIS ON CT SCAN WITH IV CONTRAST. N O SIGNIFICANT CHANGE FROM PRIOR STUDY. TECHNICAL DOCUMENTATION: JOB ID: [id number] Quality ID # [id number]: Final reports with documentation of one or more dose reduction techniques (e.g., Au tomated exposure control, adjustment of the mA and/or kV according to patient size, use of iterative reconstruction technique) 2010 [employer]- All Rights Reserved
[2017-05-11] MEDS ORDERED: LIDOCAINE 5% (700 MG) TRANSDERMAL ADH..PATCH TP ONE (23:49)
--- NOTE | 2017-05-11 23:50 | ER Document Report ---
ED General - General Chief Complaint: Abdominal Pain Stated Complaint: RIGHT SIDE PAIN Time Seen by Provider: 05/11/17 18:23 Mode of Arrival: Wheelchair Notes: Patient is a 66-year-old male who presents with right lower abdominal and flank pain that started after he had an episode of sneezing. Patient states that he had a vigorous sneeze after which he developed a dull, constant, aching pain to the affected area. He states moving, coughing or laughing worsens the pain. He denies history of similar injury in the past. He denies any fever or constitutional symptoms, vomiting, diarrhea, chest pain or shortness of breath. He has not tried anything to relieve the pain. He has not seen his primary care doctor regarding this concern. TRAVEL OUTSIDE OF THE [place] IN LAST 30 DAYS: No - Related Data Allergies/Adverse Reactions: lactose [Lactose] Allergy (Mild, Verified 11/08/16 11:56) Nausea, Stomach Cramps, Diarrhea Past Medical History - General Information source: Patient - Social History Smoking Status: Former Smoker Frequency of alcohol use: None Drug Abuse: None Lives with: Family Family History: Malignancy. denies: CAD Patient has suicidal ideation: No Patient has homicidal ideation: No - Past Medical History Cardiac Medical History: Reports: Hx Hypercholesterolemia, Hx Hypertension - well controlled Denies: Hx Atrial Fibrillation, Hx Congestive Heart Failure, Hx Coronary Artery Disease, Hx Heart Attack, Hx Peripheral Vascular Disease, Hx Pulmonary Embolism, Hx Heart Murmur Pulmonary Medical History: Reports: Hx Bronchitis, Hx COPD Denies: Hx Asthma, Hx Pneumonia, Hx Respiratory Failure, Hx Sleep Apnea, Hx Tuberculosis Neurological Medical History: Denies: Hx Cerebrovascular Accident, Hx Seizures Renal/ Medical History: Reports: Hx Benign Prostatic Hyperplasia - nocturia x 2-3/night. Denies: Hx End Stage Renal Disease, Hx Kidney Stones, Hx Peritoneal Dialysis Malignancy Medical History: Denies Hx Lung Cancer GI Medical History: Reports: Hx Gastroesophageal Reflux Disease, Hx Hiatal Hernia, Hx Ulcer. Denies: Hx Crohn's Disease, Hx Hepatitis, Hx Irritable Bowel , Hx Liver Failure, Hx Pancreatitis Musculoskeltal Medical History: Reports Hx Arthritis - hip, Denies Hx Fibromyalgia, Denies Hx Multiple Sclerosis, Denies Hx Muscular Dystrophy Psychiatric Medical History: Denies: Hx Dementia, Hx Depression Traumatic Medical History: Reports: Hx Fractures - multiple "toes and fingers", denies surgical intervention Infectious Medical History: Denies: Hx Hepatitis Past Surgical History: Reports: Hx Herniorrhaphy - 2016, Hx Neurologic Surgery, Hx Orthopedic Surgery - Right and left hip, Hx Tonsillectomy - as child. Denies : Hx Appendectomy, Hx Bowel Surgery, Hx Cholecystectomy, Hx Colostomy, Hx Coronary Artery Bypass Graft, Hx Gastric Bypass Surgery, Hx Open Heart Surgery, Hx Pacemaker - Immunizations Immunizations up to date: Yes Hx Diphtheria, Pertussis, Tetanus Vaccination: Yes Hx Pneumococcal Vaccination: 07/16/11 Review of Systems - Review of Systems Notes: Constitutional: Negative for fever. HENT: Negative for sore throat. Eyes: Negative for visual changes. Cardiovascular: Negative for chest pain. Respiratory: Negative for shortness of breath. Gastrointestinal: Positive for abdominal pain Genitourinary: Negative for dysuria. Musculoskeletal: Negative for back pain. Skin: Negative for rash. Neurological: Negative for headaches, weakness or numbness. 10 point ROS negative except as marked above and in HPI. Physical Exam - Vital signs Vitals: Temp Pulse Resp BP Pulse Ox 97.6 F 80 24 H 134/80 H 97 05/11/17 17:51 05/11/17 17:51 05/11/17 17:51 05/11/17 17:51 05/11/17 17:51 Interpretation: Tachypneic Notes: PHYSICAL EXAMINATION: GENERAL: Well-appearing, well-nourished and in no acute distress. HEAD: Atraumatic, normocephalic. EYES: Pupils equal round and reactive to light, extraocular movements intact, sclera anicteric, conjunctiva are normal. ENT: nares patent, oropharynx clear without exudates. Moist mucous membranes. NECK: Normal range of motion, supple without lymphadenopathy LUNGS: Breath sounds clear to auscultation bilaterally and equal. No wheezes rales or rhonchi. HEART: Regular rate and rhythm without murmurs ABDOMEN: Soft, mild palpation of the right flank otherwise no focal tenderness, normoactive bowel sounds. No guarding, no rebound. No masses appreciated. EXTREMITIES: Normal range of motion, no pitting or edema. No cyanosis. NEUROLOGICAL: No focal neurological deficits. Moves all extremities spontaneously and on command. PSYCH: Normal mood, normal affect. SKIN: Warm, Dry, normal turgor, no rashes or lesions noted. Course - Re-evaluation Re-evalutation: 05/11/17 23:45 Patient presents with right flank discomfort which appears to be mostly musculoskeletal in nature as he describes this pain starting after he had a very vigorous sneeze. CT abdomen pelvis obtained in triage does not show any acute intra-abdominal pathology. Does have reproducible pain on palpation of the area which is the area over the right lateral abdomen. There is no bruising or deformity to the area. His clinical history is not consistent with an acute pyelonephritis or nephrolithiasis. Vitals otherwise within normal limits. Will symptomatically treat. At this time will discharge with return precautions and follow-up recommendations. Verbal discharge instructions given a the bedside and opportunity for questions given. Medication warnings reviewed. Patient is in agreement with this plan and has verbalized understanding of return precautions and the need for primary care follow-up in the next 24-72 hours. - Vital Signs Vital signs: Temp Pulse Resp BP Pulse Ox 97.5 F 66 18 141/79 H 95 05/12/17 00:06 05/12/17 00:06 05/12/17 00:06 05/12/17 00:06 05/12/17 00:06 - Laboratory Result Diagrams: 05/11/17 19:00 05/11/17 19:00 Laboratory results interpreted by me: 05/11/17 05/11/17 19:00 19:00 RBC 5.60 H RDW 15.1 H BUN 22 H - Diagnostic Test Radiology reviewed: Reports reviewed Discharge - Discharge Clinical Impression: Right flank pain, Musculoskeletal pain Condition: Good Disposition: HOME, SELF-CARE Additional Instructions: Your CT scans are normal and your pain is likely related to the muscle along the side of your abdomen. You should continue to take the naproxen that has been prescribed for the next 1 week.. Apply heat to the area as needed for discomfort. You can also purchase topical lidocaine [id number] and apply it to the affected area. Please follow-up with your primary care physician if you do not have improving your symptoms in the next 1-2 weeks. Please return if you develop shortness of breath, worsening pain is persistent vomiting, or any other symptoms that are worrisome to you. Prescriptions: Naproxen 500 mg PO BID #14 tab
[2017-05-12 00:07] VITALS: BP 141/79
== END 2017-05-12 00:15 | disposition home or self-care (01) ==
LOC: ER 17:44
DX: R10.9 Unspecified abdominal pain (principal); R10.31 Right lower quadrant pain; R06.7 Sneezing; I10 Essential (primary) hypertension; J44.9 Chronic obstructive pulmonary disease, unspecified; R06.82 Tachypnea, not elsewhere classified; Z87.19 Personal history of other diseases of the digestive system; Z87.891 Personal history of nicotine dependence
CPT/HCPCS: 99285; 96361; 96374; 36415; 83690; 85025; 80053; 71020; 74177; J1885; J7030

== ENCOUNTER → 2017-05-11 | Outpatient (CLI) | payer MEDICARE, OTHER ==
[2017-05-11 08:27] LABS: ABSOLUTE EOSINOPHILS # (AUTO) 0.4 10^3/uL (0.0-0.6); ABSOLUTE LYMPHOCYTES (AUTO) 3.4 10^3/uL (0.5-4.7); ABSOLUTE MONOCYTES (AUTO) 1.1 10^3/uL (0.1-1.4); ABSOLUTE NEUT (AUTO) 4.4 10^3/uL (1.7-8.2); BASOPHILS % (AUTO) 0.4 % (0-2); HEMATOCRIT 47.3 % (37.9-51.0); HEMOGLOBIN 16.1 g/dL (13.5-17.0); LYMPHOCYTES % (AUTO) 36.8 % (13-45); MEAN CORPUSCULAR HEMOGLOBIN 28.5 pg (27.0-33.4); MEAN CORPUSCULAR VOLUME 84 fl (80-97); MONOCYTES % (AUTO) 11.9 % (3-13); RED BLOOD COUNT 5.63 10^6/uL (4.35-5.55); RED CELL DISTRIBUTION WIDTH 15.3 % (11.5-14.0); SEGMENTED NEUTROPHILS % (AUTO) 46.9 % (42-78); WHITE BLOOD COUNT 9.3 10^3/uL (4.0-10.5)
[2017-05-11 08:53] LABS: ALANINE AMINOTRANSFERASE 59 U/L (21-72); ALBUMIN 4.4 g/dL (3.5-5.0); ALKALINE PHOSPHATASE 54 U/L (38-126); ANION GAP 13 (5-19); ASPARTATE AMINO TRANSFERASE 31 U/L (17-59); BILIRUBIN,DIRECT 0.4 mg/dL (0.0-0.4); BILIRUBIN,TOTAL 0.6 mg/dL (0.2-1.3); BLOOD UREA NITROGEN 22 mg/dL (7-20); CALCIUM 10.1 mg/dL (8.4-10.2); CARBON DIOXIDE 26 mmol/L (22-30); CHLORIDE 107 mmol/L (98-107); CHOLESTEROL 187.49 mg/dL (0-200); Direct HDL 53 mg/dL (>40); GLUCOSE 114 mg/dL (75-110); POTASSIUM 4.8 mmol/L (3.6-5.0); SODIUM 145.6 mmol/L (137-145); TOTAL PROTEIN 7.3 g/dL (6.3-8.2); TRIGLYCERIDES 69 mg/dL (<150)
[2017-05-11 09:04] LABS: DIRECT LDL 121 mg/dL (<100)
== END ==
LOC: OD 07:20
PROVIDERS: ATTEND Internal Medicine
DX: I10 Essential (primary) hypertension (principal); N40.1 Benign prostatic hyperplasia with lower urinary tract symptoms; E78.5 Hyperlipidemia, unspecified; K21.9 Gastro-esophageal reflux disease without esophagitis
CPT/HCPCS: 36415; 80053; 80061; 84153; 84443; 85025

== ENCOUNTER → 2018-10-17 | Outpatient (CLI) | payer MEDICARE, OTHER ==
[2018-10-17 14:02] LABS: HEMATOCRIT 45.7 % (37.9-51.0); HEMOGLOBIN 15.6 g/dL (13.5-17.0); MEAN CORPUSCULAR HEMOGLOBIN 29.3 pg (27.0-33.4); MEAN CORPUSCULAR HGB CONC 34.1 g/dL (32.0-36.0); MEAN CORPUSCULAR VOLUME 86 fl (80-97); PLATELET COUNT 197 10^3/uL (150-450); RED BLOOD COUNT 5.32 10^6/uL (4.35-5.55); RED CELL DISTRIBUTION WIDTH 14.2 % (11.5-14.0); WHITE BLOOD COUNT 8.6 10^3/uL (4.0-10.5)
[2018-10-17 14:29] LABS: ALANINE AMINOTRANSFERASE 55 U/L (21-72); ALBUMIN 4.5 g/dL (3.5-5.0); ALKALINE PHOSPHATASE 54 U/L (38-126); ANION GAP 7 (5-19); ASPARTATE AMINO TRANSFERASE 40 U/L (17-59); BILIRUBIN,DIRECT 0.2 mg/dL (0.0-0.4); BILIRUBIN,TOTAL 0.5 mg/dL (0.2-1.3); BLOOD UREA NITROGEN 20 mg/dL (7-20); CALCIUM 10.3 mg/dL (8.4-10.2); CARBON DIOXIDE 27 mmol/L (22-30); CHLORIDE 105 mmol/L (98-107); GLUCOSE 87 mg/dL (75-110); POTASSIUM 4.7 mmol/L (3.6-5.0); SODIUM 139.2 mmol/L (137-145); TOTAL PROTEIN 7.6 g/dL (6.3-8.2)
== END ==
LOC: OD 12:49
PROVIDERS: ATTEND Internal Medicine Gastroenterology
DX: K62.5 Hemorrhage of anus and rectum (principal)
CPT/HCPCS: 36415; 80048; 80076; 85027

== ENCOUNTER 2018-11-28 17:42 | Emergency (ER) | payer MEDICARE, OTHER ==
[2018-11-28] MEDS ORDERED: CIPROFLOXACIN HCL 500 MG TABLET PO ONE (18:57)
--- NOTE | 2018-11-28 19:02 | ER Document Report ---
ED Extremity Problem, Lower - General Chief Complaint: Puncture Wound to Foot Stated Complaint: FOOT INJURY Time Seen by Provider: 11/28/18 18:51 Primary Care Provider: CHRISTOS HIGGINBOTHAM MD [Primary Care Provider] - Follow up tomorrow Mode of Arrival: Ambulatory Information source: Patient Notes: 68-year-old male presented to ED for pain in the left foot after he stepped on a lizzie wire about 1530 this afternoon. He states the resting wire went about 2 inches into his foot and it went through his tennis shoe. He states he called his primary doctor and they told him that he needed to come to the emergency room to have it evaluated. Patient is alert oriented respirations regular and unlabored speaking in full sentences. His foot is tender to the area that he states the wire went into his foot but there is no redness swelling or drainage noted. TRAVEL OUTSIDE OF THE [place] IN LAST 30 DAYS: No - HPI Patient complains to provider of: Injury - Lizzie wire into his foot, Pain Location: Foot Occurred: This afternoon Where: Home, Outdoors Onset/Duration: Sudden Quality of pain: Sharp, Throbbing Severity: Mild Pain Level: 2 Context: Wearing shoes Recent injury: Yes Associated symptoms: Painful ambulation Exacerbated by: Walking Relieved by: Elevation, Rest - Related Data Allergies/Adverse Reactions: lactose [Lactose] Allergy (Mild, Verified 11/28/18 17:42) Nausea, Stomach Cramps, Diarrhea Past Medical History - General Information source: Patient - Social History Smoking Status: Unknown if Ever Smoked Lives with: Family Family History: Malignancy. denies: CAD - Past Medical History Cardiac Medical History: Reports: Hx Hypercholesterolemia, Hx Hypertension - well controlled Pulmonary Medical History: Reports: Hx Bronchitis, Hx COPD EENT Medical History: Reports: None Neurological Medical History: Reports: None Endocrine Medical History: Reports: None Renal/ Medical History: Reports: Hx Benign Prostatic Hyperplasia - nocturia x 2-3/night Malignancy Medical History: Reports None GI Medical History: Reports: Hx Gastroesophageal Reflux Disease, Hx Hiatal Hernia, Hx Ulcer Musculoskeletal Medical History: Reports Hx Arthritis - hip, Reports Hx Musculoskeletal Deformity, Reports Hx Musculoskeletal Trauma Skin Medical History: Reports None Psychiatric Medical History: Reports: None Traumatic Medical History: Reports: Hx Fractures - multiple "toes and fingers", denies surgical intervention Infectious Medical History: Reports: None Past Surgical History: Reports: Hx Herniorrhaphy - 2016, Hx Neurologic Surgery, Hx Orthopedic Surgery - Right and left hip, Hx Tonsillectomy - as child - Immunizations Immunizations up to date: Yes Hx Diphtheria, Pertussis, Tetanus Vaccination: Yes - 2017 Hx Pneumococcal Vaccination: 07/16/11 Review of Systems - Review of Systems Constitutional: No symptoms reported EENT: No symptoms reported Cardiovascular: No symptoms reported Respiratory: No symptoms reported Gastrointestinal: No symptoms reported Genitourinary: No symptoms reported Male Genitourinary: No symptoms reported Musculoskeletal: No symptoms reported Skin: Other - Wound to the heel of the left foot Hematologic/Lymphatic: No symptoms reported Neurological/Psychological: No symptoms reported -: Yes All other systems reviewed and negative Physical Exam - Vital signs Vitals: Temp Pulse Resp BP Pulse Ox 98.1 F 80 16 141/88 H 96 11/28/18 17:53 11/28/18 17:53 11/28/18 17:53 11/28/18 17:53 11/28/18 17:53 Interpretation: Normal - General General appearance: Appears well, Alert - HEENT Head: Normocephalic, Atraumatic Eyes: Normal Pupils: PERRL - Respiratory Respiratory status: No respiratory distress Chest status: Nontender Breath sounds: Normal Chest palpation: Normal - Cardiovascular Rhythm: Regular Heart sounds: Normal auscultation Murmur: No - Abdominal Inspection: Normal Distension: No distension Bowel sounds: Normal Tenderness: Nontender Organomegaly: No organomegaly - Back Back: Normal, Nontender - Extremities General upper extremity: Normal inspection, Nontender, Normal color, Normal ROM, Normal temperature General lower extremity: Normal inspection, Nontender, Normal color, Normal ROM, Normal temperature, Normal weight bearing. No: Nathan's sign Foot: Tender, No evidence of FB, Puncture wound - Neurological Neuro grossly intact: Yes Cognition: Normal Orientation: AAOx4 [place] Coma Scale Eye Opening: Spontaneous Maria Teresa Coma Scale Verbal: Oriented Maria Teresa Coma Scale Motor: Obeys Commands [place] Coma Scale Total: 15 Speech: Normal Motor strength normal: LUE, RUE, LLE, RLE Sensory: Normal - Psychological Associated symptoms: Normal affect, Normal mood - Skin Skin Temperature: Warm Skin Moisture: Dry Skin Color: Normal Skin irregularity: other - Puncture wound left heel Course - Re-evaluation Re-evalutation: 05/16/19 20:44 No foreign body noted in puncture wound. Wound was soaked in warm soapy water for 15 minutes. Wound was then irrigated with saline with a Angiocath patient tolerated well. Patient was treated with Cipro and discharged home with a prescription for Cipro and instructions to follow-up with his primary care doctor. Patient was also given instructions on Epson salt soaks bacitracin and Band-Aid. Patient verbalized understanding and agreement with treatment plan and patient was discharged home. - Vital Signs Vital signs: Temp Pulse Resp BP Pulse Ox 97.7 F 73 20 154/82 H 97 11/28/18 20:03 11/28/18 20:03 11/28/18 20:03 11/28/18 20:03 11/28/18 20:03 - Diagnostic Test Radiology reviewed: Image reviewed, Reports reviewed Discharge - Discharge Clinical Impression: Puncture wound of left heel Qualifiers: Encounter type: initial encounter Qualified Code(s): S91.332A - Puncture wound without foreign body, left foot, initial encounter Condition: Stable Disposition: HOME, SELF-CARE Additional Instructions: Puncture Wound You have a puncture wound. Because these wounds often penetrate deeply beneath the skin, you must observe them carefully for complications. The wound has been examined for retained foreign material and for damage to tendons and nerves. The area should be rested and elevated for 24 hours. Then you can use the injured part -- if moving it is painfree. Punctures of the hand or foot may require splinting or crutches. The dressing should be changed daily until the wound is healed. Watch for signs of infection. Call the doctor immediately if redness, swelling, warmth, increasing pain, or wound drainage occur. If you develop numbness, persistent bleeding, or inability to move the injured area, please return for prompt re-evaluation. Epsom Salt Soaks Soak the wound area in a container of warm epsom salt water. If you can't get the wound area into a bucket or zmabrano, use a folded towel soaked in the epsom salt solution and apply to the area. Use clean hot tap water (about the temperature of a very warm bath), mixing in about one (1) teaspoon for every pint of water. Two gallon --> 16 teaspoons Epsom Salts One gallon --> 8 teaspoons Epsom Salts Two quarts --> 4 teaspoons Epsom Salts One quart --> 2 teaspoons Epsom Salts Soak the wound for about 20 minutes while gently moving it around in the water. Repeat this four (4) times a day. Ciprofloxacin You have been given an antibacterial agent, ciprofloxacin (Cipro). This medicine is not related to the penicillins, sulfas, cephalosporins, or tetracyclines. It is often given to patients who are allergic to these drugs. It has been chosen for you either because other drugs are not appropriate, or because of the nature of your problem. Cipro should not be taken with antacids, as these can decrease its effectiveness. It can be taken without regard to meals. CIPRO SHOULD NOT BE TAKEN BY CHILDREN, NURSING WOMEN, OR WOMEN. Although Cipro is usually well-tolerated, common side effects can include nausea and diarrhea. Contact your doctor if you experience any unusual symptoms while on this medication, such as joint pain or swelling, shortness of breath, wheezing, faintness, or hives. Elevate the Injury Because of the nature of your injury, elevation will be helpful to reduce swelling. This also reduces infection risk in wounds. Keep the injury up above the level of your heart for at least the next 48 hours (or longer if the physician recommends it). Acetaminophen Acetaminophen may be taken for pain relief or fever control. It's much safer than aspirin, offering a wider range of "safe" dosages. It is safe during . Some brand names are Tylenol, Panadol, Datril, Anacin 3, Tempra, and Liquiprin. Acetaminophen can be repeated every four hours. The following are maximum recommended dosages: WEIGHT Dose Drops Elixir Chewable(80mg) (LBS.) drprs=droppers tsp=teaspoon 6 40 mg .4 ml (1/2) 6-11 80 mg .8 ml (full) 1/2 tsp 1 tab 12-16 120 mg 1 1/2 drprs 3/4 tsp 1 1/2 tabs 17-23 160 mg 2 drprs 1 tsp 2 tabs 24-30 240 mg 3 drprs 1 1/2 tsp 3 tabs 30-35 320 mg 2 tsp 4 tabs 36-41 360 mg 2 1/4 tsp 4 1/2 tabs 42-47 400 mg 2 1/2 tsp 5 tabs 48-53 480 mg 3 tsp 6 tabs 54-59 520 mg 3 1/4 tsp 6 1/2 tabs 60-64 560 mg 3 1/2 tsp 7 tabs 65-70 600 mg 3 3/4 tsp 7 1/2 tabs 71-76 640 mg 4 tsp 8 tabs 77-82 720 mg 4 1/2 tsp 9 tabs 83-88 800 mg 5 tsp 10 tabs >89 pounds or adults 650 mg to 900 mg Acetaminophen can be repeated every four hours. Maximum daily dose not to exceed 4000 mg. These maximum recommended dosages are slightly higher than the dosages written on the product container, but these dosages are very safe and well below the toxic dosage for acetaminophen. Ibuprofen Ibuprofen is an excellent, safe drug for pain control. In addition, it has potent antiinflammatory effects which are beneficial, especially in the treatment of injuries, arthritis, or tendonitis. It's best to take ibuprofen with food. Persons with ulcer disease or allergy to aspirin should notify their physician of this before taking ibuprofen. Take the medication exactly as prescribed. Don't take additional doses unless instructed to do so by your doctor. If you develop wheezing, shortness of breath, hives, faintness, stomach pain, vomiting, or dark black stools, return for re-evaluation at once. FOLLOW-UP CARE: If you have been referred to a physician for follow-up care, call the physici ans office for an appointment as you were instructed or within the next two days. If you experience worsening or a significant change in your symptoms, notify the physician immediately or return to the Emergency Department at any time for re-evaluation. Prescriptions: Ciprofloxacin HCl [Cipro 500 mg Tablet] 500 mg PO BID #10 tablet Forms: Elevated Blood Pressure Referrals: CHRISTOS HIGGINBOTHAM MD [Primary Care Provider] - Follow up tomorrow
--- NOTE | 2018-11-28 19:17 | RADIOLOGY REPORT (SQ) ---
EXAM DESCRIPTION: FOOT LEFT COMPLETE COMPLETED DATE/TIME: 11/28/2018 7:06 pm REASON FOR STUDY: stepped on lizzie wire COMPARISON: Left foot films 02/06/2012 NUMBER OF VIEWS: Three views. TECHNIQUE: AP, lateral and oblique radiographic images acquired of the left foot. LIMITATIONS: None. FINDINGS: MINERALIZATION: Normal. BONES: No acute fracture or dislocation. No worrisome bone lesions. Small dorsal and plantar calcan eal spurs JOINTS: No effusions. SOFT TISSUES: No soft tissue swelling. No foreign body. OTHER: No other significant finding. IMPRESSION: Small dorsal and plantar calcaneal spurs. No acute fracture TECHNICAL DOCUMENTATION: JOB ID: [id number] [employer]- All Rights Reserved Reading location - IP/workstation name: [email or web address]
[2018-11-28 20:04] VITALS: BP 154/82
== END 2018-11-28 20:04 | disposition home or self-care (01) ==
LOC: ER 17:42
DX: S91.332A Puncture wound without foreign body, left foot, initial encounter (principal); W45.8XXA Other foreign body or object entering through skin, initial encounter; Y92.009 Unspecified place in unspecified non-institutional (private) residence as the place of occurrence of the external cause; Z91.018 Allergy to other foods; I10 Essential (primary) hypertension; J44.9 Chronic obstructive pulmonary disease, unspecified
CPT/HCPCS: 99283; 73630; A9270

== ENCOUNTER → 2019-12-17 | Outpatient (CLI) | payer MEDICARE, OTHER ==
--- NOTE | 2019-12-17 12:36 | RADIOLOGY REPORT (SQ) ---
EXAM DESCRIPTION: FOOT RIGHT COMPLETE IMAGES COMPLETED DATE/TIME: 12/17/2019 12:09 pm REASON FOR STUDY: HEEL SPUR M77.30 CALCANEAL SPUR, UNSPECIFIED FOOT COMPARISON: None. NUMBER OF VIEWS: Three views. TECHNIQUE: AP, lateral and oblique radiographic images acquired of the right foot. LIMITATIONS: None. FINDINGS: MINERALIZATION: Normal. BONES: No acute fracture or dislocation. No worrisome bone lesions. Prominent os naviculare measuri ng approximately 13 mm. Os peroneum measuring approximately 10 mm. Small plantar calcaneal enthesop hyte. JOINTS: No dislocation. Mild midfoot osteophytosis. SOFT TISSUES: No soft tissue swelling. No foreign body. OTHER: No other significant finding. IMPRESSION: 1. No evidence of acute bony abnormality of the right foot. 2. Small plantar calcaneal enthesophyte. 3. Os peroneum and prominent os naviculare which can be symptomatic. TECHNICAL DOCUMENTATION: JOB ID: [id number] [employer]- All Rights Reserved Reading location - IP/workstation name: [email or web address]
== END ==
LOC: OD 11:57
PROVIDERS: ATTEND Internal Medicine
DX: M77.31 Calcaneal spur, right foot (principal)

== ENCOUNTER → 2020-07-14 | Outpatient (CLI) | payer MEDICARE, OTHER ==
[2020-07-14 08:26] LABS: ABSOLUTE EOSINOPHILS # (AUTO) 0.5 10^3/uL (0.0-0.6); ABSOLUTE LYMPHOCYTES (AUTO) 2.9 10^3/uL (0.5-4.7); ABSOLUTE MONOCYTES (AUTO) 0.9 10^3/uL (0.1-1.4); ABSOLUTE NEUT (AUTO) 4.4 10^3/uL (1.7-8.2); BASOPHILS % (AUTO) 0.3 % (0-2); EOSINOPHILS % (AUTO) 5.6 % (0-6); HEMATOCRIT 45.1 % (37.9-51.0); HEMOGLOBIN 15.1 g/dL (13.5-17.0); MEAN CORPUSCULAR HEMOGLOBIN 28.8 pg (27.0-33.4); MEAN CORPUSCULAR HGB CONC 33.5 g/dL (32.0-36.0); MEAN CORPUSCULAR VOLUME 86 fl (80-97); PLATELET COUNT 181 10^3/uL (150-450); RED BLOOD COUNT 5.23 10^6/uL (4.35-5.55); RED CELL DISTRIBUTION WIDTH 13.9 % (11.5-14.0); SEGMENTED NEUTROPHILS % (AUTO) 51.1 % (42-78); TOTAL CELLS COUNTED % (AUTO) 100 %; WHITE BLOOD COUNT 8.7 10^3/uL (4.0-10.5)
[2020-07-14 08:51] LABS: ALBUMIN 4.4 g/dL (3.5-5.0); ALKALINE PHOSPHATASE 52 U/L (38-126); ANION GAP 8 (5-19); ASPARTATE AMINO TRANSFERASE 37 U/L (17-59); BILIRUBIN,DIRECT 0.2 mg/dL (0.0-0.4); BILIRUBIN,TOTAL 0.8 mg/dL (0.2-1.3); BLOOD UREA NITROGEN 20 mg/dL (7-20); CALCIUM 9.8 mg/dL (8.4-10.2); CARBON DIOXIDE 27 mmol/L (22-30); CHLORIDE 105 mmol/L (98-107); CHOLESTEROL 196.04 mg/dL (0-200); GLUCOSE 111 mg/dL (75-110); POTASSIUM 4.4 mmol/L (3.6-5.0); TOTAL PROTEIN 7.3 g/dL (6.3-8.2); TRIGLYCERIDES 114 mg/dL (<150)
[2020-07-14 09:13] LABS: DIRECT LDL 131 mg/dL (<100)
== END ==
LOC: OD 07:41
PROVIDERS: ATTEND Internal Medicine
DX: I10 Essential (primary) hypertension (principal); E78.5 Hyperlipidemia, unspecified; R35.1 Nocturia; R53.83 Other fatigue; K21.9 Gastro-esophageal reflux disease without esophagitis; Z79.899 Other long term (current) drug therapy
CPT/HCPCS: 36415; 80053; 80061; 83036; 83525; 84443; 85025